=== PATIENT | female | born 1990 | race Caucasian/White ===

== ENCOUNTER 2016-12-09 18:00 | Emergency (ER) | payer OTHER ==
[~2016-12-09] VITALS: Ht 152.4 cm; Wt 56.0 kg
[2016-12-09 18:05] VITALS: Ht 152.4 cm; Wt 56.0 kg
[2016-12-09] MEDS ORDERED: KETOROLAC 30 MG INJ IM STA (19:30)
[2016-12-09] MEDS ORDERED: ONDANSETRON 4 MG TAB PO ONE (19:30)
[2016-12-09 19:46] LABS: URINE BLOOD (Dip) POC Negative (NEGATIVE)
[2016-12-09] MEDS ORDERED: ONDANSETRON (ODT) 4 MG TAB ODT ONE (19:51)
[2016-12-09] MEDS ORDERED: ONDANSETRON (ODT) 4 MG TAB ODT STA (19:52)
[2016-12-09 20:40] LABS: POTASSIUM 4.3 mmol/L (3.5-5.1)
[2016-12-09 20:42] LABS: CREATININE 0.56 mg/dl (0.44-1.00)
[2016-12-09 20:44] LABS: CALCIUM 9.5 mg/dl (8.4-10.2)
[2016-12-09 20:45] LABS: BASOPHILS % 0.1 % (0.0-2.0); EOSINOPHILS % 0.3 % (0.0-7.0); HEMATOCRIT 38.4 % (37.0-47.0); HEMOGLOBIN 12.7 g/dl (12.0-16.0); LYMPHOCYTES # 0.8 10^3/ul (0.8-2.9); LYMPHOCYTES % 5.8 % (15.0-51.0); MEAN CORPUSCULAR HGB CONC 32.9 g/dl (32.0-37.0); MEAN CORPUSCULAR VOLUME 81.9 fl (82.0-101.0); MEAN PLATELET VOLUME 8.9 fl (7.4-10.4); MONOCYTE # 0.5 10^3/ul (0.3-0.9); MONOCYTES % 3.5 % (0.0-11.0); NEUTROPHIL # 12.7 10^3/ul (1.6-7.5); NEUTROPHILS % 90.3 % (39.0-77.0); PLATELET COUNT 332 10^3/UL (140-440); RED BLOOD COUNT 4.69 10^6/ul (4.20-5.40); UNCORRECTED WBC 14.1 10^3/ul (4.8-10.8); WHITE BLOOD COUNT 14.1 10^3/ul (4.8-10.8)
[2016-12-09 20:48] LABS: CONDITION 1; LH ANALYZER COMMENTS 1
--- NOTE | 2016-12-09 21:29 | ERD ---
ER Documentation Chief Complaint Date/Time DATE: 12/09/16 TIME: 21:17 Chief Complaint pt bib family with c/o n/v and ap cramps since this am HPI This is a 26-year-old female presenting to the emergency department for nausea, headache and abdominal cramping 2 days. Patient states symptoms started last night and is gotten worse. Denies this being the worst headache she is ever had. No visual changes. No changes in mood or behavior. No memory changes. Patient also states that she started feeling lightheaded today. No fevers or chills. No vomiting or diarrhea. No dysuria or hematuria. Abdominal pain is generalized and nonspecific. No localized area of tenderness. No neck stiffness. No rashes. Patient did not take any medications at home. ROS All systems reviewed and are negative except as per history of present illness. Medications Home Meds Active Scripts Ondansetron Hcl* (Zofran*) 4 Mg Tab, 4 MG PO Q4H Y for NAUSEA AND OR VOMITING, # 10 TAB Prov:IRMA APPLE NP 12/09/16 Allergies Allergies: Coded Allergies: No Known Allergy (Unverified , 12/09/16) PMhx/Soc Medical and Surgical Hx: pt denies Medical Hx, pt denies Surgical Hx Hx Alcohol Use: No Hx Substance Use: No Hx Tobacco Use: No Smoking Status: Never smoker Physical Exam Vitals Vital Signs Date Time Temp Pulse Resp B/P Pulse Ox O2 Delivery O2 Flow Rate FiO2 12/09/16 22:16 98.5 100 18 112/64 98 Room Air 12/09/16 18:05 98.3 125 16 123/70 100 Physical Exam Const: No acute distress, alert Head: Atraumatic Eyes: Normal Conjunctiva ENT: Normal External Ears, Nose and Mouth. No erythema or exudate to posterior pharynx. TMs normal bilaterally. Neck: Full range of motion..~ No meningismus. Resp: Clear to auscultation bilaterally. No wheezing, rhonchi or crackles. Cardio: Regular rate and rhythm, no murmurs Abd: Soft, non tender, non distended. Normal bowel sounds Skin: No petechiae or rashes Back: No midline or flank tenderness Ext: No cyanosis, or edema Neur: Awake and alert Psych: Normal Mood and Affect Result Diagram: 12/09/16195012/09/161950 Results 24 hrs Laboratory Tests Test 12/09/16 19:47 12/09/16 19:51 Bedside Urine Blood Negative Bedside Urine Glucose (UA) Negative Bedside Urine Ketones (LAB) Negative Bedside Urine Leukocyte Esterase (L Negative Bedside Urine Nitrite (LAB) Negative Bedside Urine Protein (LAB) 1+ Bedside Urine pH (LAB) 5.0 Anion Gap 17 Basophils # 0.010^3/ul Basophils % 0.1% Blood Morphology Comment Blood Urea Nitrogen 9mg/dl Calcium Level 9.5mg/dl Carbon Dioxide Level 26mmol/L Chloride Level 104mmol/L Creatinine 0.56mg/dl Eosinophils # 0.010^3/ul Eosinophils % 0.3% Glucose Level 108mg/dl Hematocrit 38.4% Hemoglobin 12.7g/dl Lymphocytes # 0.810^3/ul Lymphocytes % 5.8% Mean Corpuscular Hemoglobin 27.0pg Mean Corpuscular Hemoglobin Concent 32.9g/dl Mean Corpuscular Volume 81.9fl Mean Platelet Volume 8.9fl Monocytes # 0.510^3/ul Monocytes % 3.5% Neutrophils # 12.710^3/ul Neutrophils % 90.3% Nucleated Red Blood Cells # 0.010^3/ul Nucleated Red Blood Cells % 0.0/100WBC Platelet Count 81931^3/UL Potassium Level 4.3mmol/L Red Blood Count 4.6910^6/ul Red Cell Distribution Width 16.0% Sodium Level 143mmol/L White Blood Count 14.110^3/ul Current Medications Medications (Trade) Dose Ordered Sig/Vanessa Route PRN Reason Start Time Stop Time Status Last Admin Dose Admin Ondansetron HCl (Zofran Tab) 4 mg ONCE ONCE PO 12/09/16 19:30 12/09/16 19:53 DC Ketorolac Tromethamine (Toradol) 30 mg ONCE STAT IM 12/09/16 19:30 12/09/16 19:31 DC 12/09/16 19:56 Ondansetron HCl (Zofran Odt) 4 mg STK-MED ONCE ODT 12/09/16 19:51 12/09/16 19:52 DC Ondansetron HCl (Zofran Odt) 4 mg ONCE STAT ODT 12/09/16 19:52 12/09/16 19:53 DC 12/09/16 19:57 Procedures/MDM ED COURSE: The patient was stable throughout ED course. I kept the patient and/or family informed of laboratory and diagnostic imaging results throughout the ED course. Zofran and Toradol given. p.o. challenge Laboratory CBC white blood cell 14.1 otherwise negative CMP unremarkable Urine dip 1+ protein otherwise negative Urine negative MDM: 26-year-old female presents to emergency department for nausea, abdominal cramps, headache and lightheadedness 2 days. Labs are unremarkable. Urine is negative for infection. Urine negative. Toradol and Zofran given with resolution of symptoms. Patient now denies headache or nausea. Patient remains hemodynamically stable and stable for discharge home. Patient is requesting to go home and states she is feeling much better. Low suspicion for appendicitis, diverticulitis, cholecystitis, bowel obstruction , UTI or . Differential diagnosis includes but not limited to GERD, gastritis, peptic ulcer disease, functional dyspepsia and nausea not otherwise specified. Patient is appropriate for outpatient management will be discharged with prescription for Zofran. Instructed patient to follow-up with primary care provider in the next 24-48 hours for reassessment. Return to ED for any high fever, chest pain, difficulty breathing, shortness breath, wheezing, vomiting, diarrhea, abdominal pain or any new or worsening symptoms. Patient verbalizes understanding. All questions answered at discharge. Departure Diagnosis: Primary Impression: Nausea Condition: Stable IRMA APPLE NP Dec 09, 2016 21:28
[2016-12-09] MEDS ORDERED: ONDA-43 PO (22:09)
[2016-12-09 22:16] VITALS: BP 112/64; PULSE 100; RESP 18; TEMP 98.5
== END 2016-12-09 22:16 | disposition home or self-care (01) ==
LOC: FTE 18:00
DX: R11.0 Nausea (principal)
CPT/HCPCS: 80048; 81003; 85025; 96372; J1885; Z7502